=== PATIENT | male | born 1965 | race African-American/Black ===

== ENCOUNTER 2021-08-10 16:19 | Emergency (ER) | payer OTHER ==
[2021-08-10 18:07] LABS: ALBUMIN 1.5 g/dL (3.4-5.0); BILIRUBIN - TOTAL 0.6 mg/dL (0.2-1.0); BUN/CREAT RATIO (CALC) 14.6 RATIO; CREATININE 2.39 mg/dL (0.67-1.17); GLOBULIN (CALCULATION) 3.1 g/dL; POTASSIUM 5.7 mmol/L (3.5-5.1); TOTAL PROTEIN 4.6 g/dL (6.4-8.2)
== END 2021-08-10 18:40 | disposition expired ==
LOC: EDBD 16:19 → FER 16:19
PROVIDERS: Emergency Medicine
DX: I46.9 Cardiac arrest, cause unspecified (principal); U07.1 COVID-19
CPT/HCPCS: 31500; 36415; 80053; 82550; 82553; 83605; 84484; 92950; J0171; U0002